=== PATIENT | female | born 1940 | race Caucasian/White ===

== ENCOUNTER 2017-11-07 16:15 | Inpatient (IN) | payer OTHER ==
--- NOTE | 2017-11-07 17:01 | CT ---
Exam: CT abdomen pelvis without intravenous contrast. Comparison: None available. Reason for exam: Abdominal pain with fever. FINDINGS: Emphysematous disease is seen in the partially imaged lung bases with large basilar consol idations. Please see CT examination of the chest performed on the same day for further characterizat ion. Image interpretation is limited by the lack of intravenous contrast administration. There is a moderately-sized hiatal hernia. There is a small pericardial effusion. The gallbladder is not well seen on the exam. The spleen, right adrenal gland, and pancreas appear grossly unremarkable within limitations of a non contrasted study. There is nodularity seen in the left adrenal gland. No focal small bowel dilatation or transition point. No intra-abdominal free air or pelvic free fluid. Diverticular disease is seen in the rectosigmoid and descending colon without surrounding inflammator y change. There is a large stool burden in the rectal vault. No hydronephrosis or nephrolithiasis in either kidney. The entirety of the ureters is not able to be traced throughout the abdomen and pelvis secondary to a lack of intravenous contrast. Degenerative disease is seen in the lumbosacral spine. No suspicious appearing osteoblastic or osteolytic lesions. Impression: 1. Please see CT examination of the chest for evaluation of the thorax. There appears to be a large consolidations in the lung bases with air bronchograms and a pericardial effusion. 2. Nodularity in the left adrenal gland incompletely evaluated on this exam. 3. Diverticulosis without obvious diverticulitis. 4. Dense stool burden in the rectal vault raising consideration for constipation and impaction with mild rectal wall inflammation and thickening. Consider direct visualization. 5. No intra-abdominal free air or pelvic free fluid.
--- NOTE | 2017-11-07 17:05 | CT ---
EXAM: CT chest without contrast TECHNIQUE: Helical axial CT of the chest was performed without contrast with coronal and sagittal rec onstructions. COMPARISON: CT abdomen pelvis from today HISTORY: Cough FINDINGS: Lung parenchyma: There is a large air space opacification in the right lateral lung base with some a ir bronchograms. There is no large effusion. There is a more chronic-appearing consolidation in the left lung base with bronchiectasis. Mediastinum: No pathologic hilar or mediastinal adenopathy. No significant coronary calcifications. T here is a small pericardial effusion. There is some mild calcific atherosclerosis of the aorta. There is no aortic aneurysm. There is a hiatal hernia. Upper Abdomen: Please refer to today's CT abdomen pelvis report. Osseous structures: Nothing acute. Surrounding soft tissues including the thyroid gland are normal. No supraclavicular or axillary adeno laina. IMPRESSION: 1. Right lower lobe pneumonia however would recommend follow-up to resolution to rule out underlying progressive etiology for this appearance. 2. Chronic scarring and atelectasis and bronchiectasis left base. 3. Large hiatal hernia.
[2017-11-07] MEDS ORDERED: TYLENOL PO STA (17:07)
[2017-11-07] MEDS ORDERED: SODIUM CHLORIDE 1,000 ML IV STA (17:11)
--- NOTE | 2017-11-07 17:11 | ED.PDOC ---
General ED Provider: Dr. ZE CASTRO-ER Chief Complaint: Fever Stated Complaint: shes had a fever and coughing Time Seen by Physician: 16:20 Mode of Arrival: Walk-In Information Source: Patient, Family Exam Limitations: No limitations Primary Care Provider: TRIXIE GARCIA Nursing and Triage Documentation Reviewed and Agree: Yes Does patient meet sepsis criteria?: Yes If yes, has appropriate treatment been initiated?: Yes System Inflammatory Response Syndrome: Temp 101F or Greater, Not Applicable Sepsis Protocol: For patient's 13 years and over: Temp is 96.8 and below OR 101 and greater Pulse >90 BPM Resp >20/minute Acutely Altered Mental Status Are patient's symptoms suggestive of a new infection, such as: -Pneumonia -Skin, Soft Tissue -Endocarditis -UTI -Bone, Joint Infection -Implantable Device -Acute Abdominal Infection -Wound Infection -Meningitis -Blood Stream Catheter Infection -Unknown Respiratory Complaint Exam - Respiratory Complaint/Exam Onset/Duration: 2 days Symptoms Are: Still present Timing: Constant, Intermittent Initial Severity: Mild Current Severity: Moderate Location: Chest Character: Reports: Productive cough Aggravating: Reports: URI Alleviating: Reports: None Associated Signs and Symptoms: Reports: Fever, Chills, URI Related History: Reports: Similar episode History of Healthcare-Acquired Pneumonia: No Home Oxygen Use: No Recent Stress Test: No Recent Echo/LV Function: No Respiratory Distress: None Inadequate Respiratory Effort: No Dysphagia Present: No Stridor Present: No JVD Present: No Accessory Muscle Use: No Retractions: Not Present Diminished Breath Sounds: No Sinus Tenderness: None Grunting Respirations: Yes Kussmaul Respirations: Yes Differential Diagnoses: Pneumonia, Bronchitis, URI Non-Traumatic Chest Pain Syncope: EKG Performed Review of Systems - Review Of Systems Constitutional: Reports: Chills, Fever, Weakness Eyes: Reports: No symptoms Ears, Nose, Mouth, Throat: Reports: No symptoms Respiratory: Reports: Cough, Short of air Cardiac: Reports: No symptoms GI: Reports: No symptoms : Reports: No symptoms Musculoskeletal: Reports: No symptoms Skin: Reports: No symptoms Neurological: Reports: No symptoms Endocrine: Reports: No symptoms Hematologic/Lymphatic: Reports: No symptoms All Other Systems: Reviewed and Negative Past Medical History - Past Medical History Previously Healthy: No Endocrine: Reports: Unknown Cardiovascular: Reports: Unknown Respiratory: Reports: COPD Hematological: Reports: Other Gastrointestinal: Reports: Other Genitourinary: Reports: Other Neuro/Psych: Reports: Other Musculoskeletal: Reports: Other Cancer: Reports: Other Last Menstrual Period: NA - Surgical History General Surgical History: Reports: Unknown - Family History Family History: Reports: Unknown - Social History Smoking Status: Never smoker Hx Substance Use: No Alcohol Screening: None - Immunizations Tetanus Shot up to Date: Yes Physical Exam - Physical Exam Appearance: Well-appearing, No pain distress, Well-nourished Ill-appearing: Mild Eyes: ABEBA, EOMI, Conjunctiva clear ENT: Ears normal, Nose normal, Oropharynx normal Neck: Supple Respiratory: Crackles, Rhonchi Cardiovascular: RRR, Pulses normal, No rub, No murmur GI/: Soft, Nontender, No masses, Bowel sounds normal, No Organomegaly Musculoskeletal: Normal strength, ROM intact, No edema, No calf tenderness Skin: Warm, Dry, Normal color Neurological: Sensation intact, Motor intact, Reflexes intact, Cranial nerves intact, Alert, Oriented Psychiatric: Affect appropriate, Mood appropriate Interpretation - Radiology Interpretation Radiology Interpretation By: Radiologist Radiology Results: Positive Exam Interpreted: CT Scan - EKG Interpretation Time of EKG #1: 17:44 Rate: Normal Rhythm: Sinus Ectopy: None [place]: NL ST Segment: Normal Interpretation: mar Physician Notification - Case Discussed Physician Notified: dr colon Time of Notification: 17:44 Critical Care Note - Critical Care Note Total Time (mins): 0 Course - Course Hematology/Chemistry: 11/07/17 16:43 11/07/17 16:43 Orders, Labs, Meds: Lab Review 11/07/17 11/07/17 11/07/17 16:28 16:43 16:43 WBC 14.16 H RBC 3.17 L Hgb 8.8 L Hct 27.6 L MCV 87.1 MCH 27.8 MCHC 31.9 RDW Coeff of Levi 13.2 Plt Count 352 Immature Gran % (Auto) 0.4 Neut % (Auto) 79.0 Lymph % (Auto) 12.5 Placer % (Auto) 7.9 Eos % (Auto) 0.1 Baso % (Auto) 0.1 Immature Gran # (Auto) 0.1 Neut # (Auto) 11.2 H Lymph # (Auto) 1.8 Placer # (Auto) 1.1 Eos # (Auto) 0.0 Baso # (Auto) 0.0 Puncture Site Rb O2 Saturation 94.0 L ABG pH 7.508 H* ABG pCO2 34.7 L ABG pO2 65.0 L ABG HCO3 27.6 H ABG Total CO2 29 H ABG Base Excess 5 H FiO2 % 21.0 Sodium 136.8 L Potassium 3.86 Chloride 100.2 Carbon Dioxide 30.2 H Anion Gap 10.26 BUN 11.7 Creatinine 1.17 Estimated GFR (MDRD) 45.00 BUN/Creatinine Ratio 10.00 Glucose 120.4 H Lactic Acid Calcium 9.00 Total Bilirubin 0.72 AST 30.5 ALT 12.6 Alkaline Phosphatase 147.2 H Total Protein 7.28 Albumin 3.35 L Globulin 3.93 Albumin/Globulin Ratio 0.85 Influ A Molecular Assay Influ B Molecular Assay 11/07/17 11/07/17 16:43 17:05 WBC RBC Hgb Hct MCV MCH MCHC RDW Coeff of Levi Plt Count Immature Gran % (Auto) Neut % (Auto) Lymph % (Auto) Placer % (Auto) Eos % (Auto) Baso % (Auto) Immature Gran # (Auto) Neut # (Auto) Lymph # (Auto) Placer # (Auto) Eos # (Auto) Baso # (Auto) Puncture Site O2 Saturation ABG pH ABG pCO2 ABG pO2 ABG HCO3 ABG Total CO2 ABG Base Excess FiO2 % Sodium Potassium Chloride Carbon Dioxide Anion Gap BUN Creatinine Estimated GFR (MDRD) BUN/Creatinine Ratio Glucose Lactic Acid 0.77 Calcium Total Bilirubin AST ALT Alkaline Phosphatase Total Protein Albumin Globulin Albumin/Globulin Ratio Influ A Molecular Assay Negative by naat Influ B Molecular Assay Negative by naat Orders Category Date Time Status ABG DRAW REQUEST Stat CARDIO 11/07/17 16:28 Completed EKG-(ED ONLY) Stat CARDIO 11/07/17 16:28 Completed ED IV/MEDIPORT/POWERPORT .ONCE EMERGENCY 11/07/17 17:11 Active ABG Stat LAB 11/07/17 16:28 Completed BLOOD CULTURE (ED ONLY) Stat LAB 11/07/17 16:43 Received CBC W/ AUTO DIFF Stat LAB 11/07/17 16:43 Completed COMPREHENSIVE METABOLIC PANEL Stat LAB 11/07/17 16:43 Completed FLU A/B MOLECULAR Stat LAB 11/07/17 17:05 Completed LACTIC ACID Stat LAB 11/07/17 16:43 Completed PROCALCITONIN Stat LAB 11/07/17 16:43 Received URINALYSIS C & S IF INDICATED Stat LAB 11/07/17 16:28 Uncollected 0.9 % Sodium Chloride [Saline Flush] MEDS 11/07/17 17:11 Ordered 1 syr IVF PRN PRN Acetaminophen [Tylenol] MEDS 11/07/17 17:07 Discontinued 650 mg PO ONCE STA Sodium Chloride 0.9% [Sodium Chloride] 1,000 ml MEDS 11/07/17 17:[address] ABDOMEN/PELVIS WO CONTRAST Stat RADS 11/07/17 16:[address] CHEST W/O CONTRAST Stat RADS 11/07/17 16:29 Completed Medications Generic Name Dose Route Start Last Admin Trade Name Freq PRN Reason Stop Dose Admin Sodium Chloride 1,000 mls @ 1,000 mls/hr 11/07/17 17:11 11/07/17 17:14 Sodium Chloride IV 11/07/17 18:10 1,000 mls/hr BOLUS STA Administration Sodium Chloride 1 syr 11/07/17 17:11 Saline Flush IVF PRN PRN To flush IV Discontinued Medications Generic Name Dose Route Start Last Admin Trade Name Freq PRN Reason Stop Dose Admin Acetaminophen 650 mg 11/07/17 17:07 11/07/17 17:13 Tylenol PO 11/07/17 17:08 650 mg ONCE STA Administration Vital Signs: Temp Pulse Resp BP Pulse Ox 11/07/17 16:17 101.8 F H 132 H 22 125/77 94 L Departure - Departure Time of Disposition: 17:45 Disposition: ADMITTED INPATIENT Discharge Problem: Pneumonia Qualifiers: Pneumonia type: due to unspecified organism Laterality: right Lung location: lower lobe of lung Qualified Code(s): J18.1 - Lobar pneumonia, unspecified organism Instructions: Community Acquired Pneumonia (ED) Condition: Fair Pt referred to PMD for follow-up: No IPMP verified?: No Allergies/Adverse Reactions: Allergies Penicillins Adverse Reaction (Verified 11/07/17 16:25) Home Medications: Ambulatory Orders Albuterol Sulfate 2.5 mg IN DAILY 11/07/17 Albuterol Sulfate 25 ml IN DAILY 11/07/17 Albuterol Sulfate [Ventolin Hfa] 18 gm IN DIRECTED PRN 11/07/17 Fluticasone/Salmeterol 250/50 [Advair 250-50 Diskus] 1 puff IH DIRECTED PRN 11/07/17 Furosemide 40 mg PO DAILY 11/07/17 Lisinopril [Zestril] 40 mg PO DAILY 11/07/17 Disposition Discussed With: Patient, Family
[2017-11-07] MEDS ORDERED: TYLENOL PO PRN (17:50)
[2017-11-07] MEDS ORDERED: ALBUTEROL 0.042% NEB IH SCH (18:00)
[2017-11-07] MEDS ORDERED: LEVAQUIN 500 MG in PREMIX 100 ML WATER 1 BAG IV SCH (18:00)
[2017-11-07] MEDS ORDERED: ALBUTEROL 0.042% NEB NEB ONE (18:12)
[2017-11-07] MEDS ORDERED: LEVAQUIN 100 ML IV ONE (18:28)
[2017-11-07] MEDS ORDERED: ALBUTEROL 0.042% NEB NEB SCH (18:30)
[2017-11-07] MEDS: SODIUM CHLORIDE 1,000 ML IV SCH (18:42)
[2017-11-07 18:47] VITALS: BMI 21.2
[2017-11-07] MEDS: ADVAIR 250-50 DISKUS IH SCH (21:36)
[2017-11-07] MEDS: ALBUTEROL 0.042% NEB NEB SCH (23:15)
[2017-11-08] MEDS: ALBUTEROL 0.042% NEB NEB SCH ×4 (04:58→23:15)
[2017-11-08] MEDS: AVELOX 400 MG in PREMIX 250 ML NS 1 BAG IV SCH (08:50)
[2017-11-08] MEDS: ADVAIR 250-50 DISKUS IH SCH ×2 (08:50→20:24)
[2017-11-08] MEDS: LASIX TAB PO SCH (08:51)
[2017-11-08] MEDS: ZESTRIL PO SCH (10:11)
--- NOTE | 2017-11-08 14:21 | DI ---
EXAM: Two views of the chest. History: Follow-up pneumonia Comparison: Chest CT 11/07 2017 Findings: Heart remains mildly enlarged. No significant interval change in the right greater than l eft bibasilar consolidation. No pneumothorax. Visualized osseous structures unchanged. Impression: No significant interval change in the right greater than left bibasilar pneumonia. Cont inued follow-up recommended.
[2017-11-09] MEDS: SODIUM CHLORIDE 1,000 ML IV SCH (04:06)
[2017-11-09] MEDS: ALBUTEROL 0.042% NEB NEB SCH ×3 (05:00→16:50)
[2017-11-09] MEDS: LASIX TAB PO SCH (05:33)
[2017-11-09] MEDS: AVELOX 400 MG in PREMIX 250 ML NS 1 BAG IV SCH (08:26)
[2017-11-09] MEDS: ZESTRIL PO SCH (08:26)
[2017-11-09] MEDS ORDERED: MILK OF MAGNESIA PO STA (08:29)
[2017-11-09] MEDS: ADVAIR 250-50 DISKUS IH SCH ×2 (08:33→20:30)
--- NOTE | 2017-11-09 09:45 | PN ---
DATE OF VISIT: 11/07/17 ADMITTING NOTE 77 year old female had not been feeling well for the last two weeks. She is known to have chronic obstructive lung disease and is on medication. She does have shortness of breath, but that seemed to have worsened. She presented to the emergency room and the work-up showed right lower lobe pneumonia. She was then admitted. WBC is slightly elevated at 14,160. Arterial blood gases alkalotic with pH 7.508, FIO2 21.0, PCO2 34.7, PO2 65, HCO3 27.6, total CO2 29. This patient was prescribed Levaquin 500 mg daily. The patient's BUN is 11.7, creatinine 1.17, estimated GFR 45. The patient is thin at 127 pounds, 5'5". That more or less is her ideal weight. Creatinine maybe lower because of that, since there is not much muscle mass. I changed the Levaquin to Avelox 400 mg a day since there are no renal dosing for Avelox. She also had an elevated alkaline phosphatase, but we will see for the repeat. We will order a GGT today. MTDD
[2017-11-10] MEDS: ALBUTEROL 0.042% NEB NEB SCH ×5 (00:15→21:58)
[2017-11-10] MEDS: LASIX TAB PO SCH (05:43)
[2017-11-10] MEDS: ZESTRIL PO SCH (08:50)
[2017-11-10] MEDS: ADVAIR 250-50 DISKUS IH SCH ×2 (09:55→20:36)
[2017-11-10] MEDS: AVELOX 400 MG in PREMIX 250 ML NS 1 BAG IV SCH (09:58)
[2017-11-10] MEDS ORDERED: DULCOLAX RC STA (17:51)
[2017-11-11] MEDS: ALBUTEROL 0.042% NEB NEB SCH ×4 (04:56→23:03)
[2017-11-11] MEDS: LASIX TAB PO SCH (06:14)
[2017-11-11] MEDS: AVELOX 400 MG in PREMIX 250 ML NS 1 BAG IV SCH (09:16)
[2017-11-11] MEDS: ADVAIR 250-50 DISKUS IH SCH ×2 (09:16→20:41)
[2017-11-11] MEDS: FERROUS SULFATE PO SCH ×2 (09:17→20:41)
[2017-11-11] MEDS: ZESTRIL PO SCH (09:18)
[2017-11-11] MEDS: K-DUR PO SCH ×3 (09:18→17:31)
--- NOTE | 2017-11-11 11:27 | PCM.PROG ---
Attending Provider: ATTENDING PROVIDER: Dr. Pepito LOWE DATE OF SERVICE: 11/11/17 SUBJECTIVE: This 77 year old WHITE/ F was hospitalized 11/07/17. The patient is seen by Dr. Johnson in Dr. Lowe's absence. The patient is hospitalized with weakness, fatigue, and poor appetite. The patient had pneumonia by chest x- ray. Clinically, the patient looks pneumonia free with normal WBC count, no cough, no congestion, no fever or chills. Appetite is improved and she feels better. Weakness and all could be from anemia. She is given 2 units PRBC. Hemoglobin 9.5 with hematocrit of 29. SHe has no evidence of active GI bleed. Stool for occult blood one time - negative. She is up and about. REVIEW OF SYSTEMS: CONSTITUTIONAL: No night sweats. No fatigue, malaise, lethargy. No fever or chills. HEENT: Eyes: No visual changes. No eye pain. No eye discharge. ENT: No runny nose. No epistaxis. No sinus pain. No odynophagia. No congestion. RESPIRATORY: No cough, no congestion. No hemoptysis. No shortness of breath. CARDIOVASCULAR: No angina symptoms. No CHF symptoms. No atypical chest pain for CAD. No palpitations. No orthopnea.. GASTROINTESTINAL: No abdominal pain. No nausea or vomiting. No diarrhea or constipation. No hematemesis. No hematochezia. GENITOURINARY: No urgency. No frequency. No dysuria. No hematuria. No obstructive symptoms. No discharge. No pain. No significant abnormal bleeding. MUSCULOSKELETAL: No musculoskeletal pain; no joint swelling. NEUROLOGICAL: Awake, alert, oriented to time, place and person. No headache. No neck pain. No syncope. No seizures. No dizziness. PSYCHIATRIC: Not anxious. No depression. No suicidal thoughts. No homicidal thoughts. SKIN: No rash. No lesions. No wounds. ENDOCRINE: No unexplained weight loss. No weight gain. HEMATOLOGIC/LYMPHATIC: No anemia. No purpura. No petechiae. No prolonged or excessive bleeding. No palpable lymph nodes. PHYSICAL EXAMINATION: GENERAL: The patient is awake, alert and oriented, lying in bed in no distress. VITAL SIGNS: Temperature 98.5 F, Pulse 70, Respiratory Rate 22, BP 92/57, Pulse Ox 95% HEENT: Head normocephalic, atraumatic. Eyes: Extraocular muscles are intact. Pupils are equal, round and reactive to light and accommodation. Ears: No lesions. Nose appeared normal. Throat: No exudate or erythema. NECK: Supple. No JVD, no carotid bruit. No lymphadenopathy or thyromegaly. LUNGS: Clear to auscultation. Percussion note normal. Chest symmetrical. HEART: S1, S2, no S3. No murmurs. No cyanosis or clubbing. No ascites. Pulses: Dorsalis pedis and posterior tibial pulses +1 to +2 both sides. ABDOMEN: Soft. Non-tender. Bowel sounds active. No CVA tenderness. No mass felt. EXTREMITIES: No edema. Full range of motion of all extremities, equal. NEUROLOGIC: No focal deficit. Cranial nerves II through XII are grossly intact. No headache, no double vision or headache. SKIN: Warm and dry. Intact. Turgor-normal. LYMPHATIC: No palpable lymph nodes/no lymphedema. MUSCULOSKELETAL: Normal joints with no swelling. Muscle tone is normal. LAB REVIEW: 11/11/17 04:30 11/11/17 04:30 11/11/17 04:30: Sodium 137.7, Potassium 3.32 L, Chloride 104.3, Carbon Dioxide 31.0 H, Anion Gap 5.72, BUN 14.7, Creatinine 1.02, Estimated GFR (MDRD) 52.00, BUN/Creatinine Ratio 14.41, Glucose 116.5 H, Calcium 8.59, Total Bilirubin 0.41 , AST 52.5 H, ALT 23.5, Alkaline Phosphatase 189.4 H D, Total Protein 6.33, Albumin 2.87 L, Globulin 3.46, Albumin/Globulin Ratio 0.82 11/11/17 04:30: WBC 7.75, RBC 3.38 L, Hgb 9.5 L, Hct 29.9 L, MCV 88.5, MCH 28.1 , MCHC 31.8, RDW Coeff of Levi 13.9, Plt Count 359, Immature Gran % (Auto) 0.5, Neut % (Auto) 63.0, Lymph % (Auto) 27.2, Phillips % (Auto) 7.5, Eos % (Auto) 1.4, Baso % (Auto) 0.4, Immature Gran # (Auto) 0.0, Neut # (Auto) 4.9, Lymph # (Auto ) 2.1, Phillips # (Auto) 0.6, Eos # (Auto) 0.1, Baso # (Auto) 0.0 11/10/17 22:36: Hgb 9.5 L, Hct 29.6 L 11/10/17 19:15: Stl Occult Blood (IFOB) Negative, Stool Occult Blood #2 No specimen received, Stool Occult Blood #3 No specimen received 11/10/17 11:35: Homocysteine 9.5 11/10/17 11:35: Iron 19.5 L, TIBC 176 L, % Saturation 11 11/10/17 11:35: Reticulocyte % (Auto) 0.86, Absolute Retic 0.0236, Retic Hgb Equivalent 22.1 11/10/17 11:35: Transferrin 111 L 11/10/17 11:35: Ferritin 398.00 H 11/10/17 09:30: Blood Type A POSITIVE, Antibody Screen Negative, Crossmatch (AHG ) See Detail 11/10/17 07:55: Urine Color Yellow, Urine Clarity Clear, Urine pH 5.5, Ur Specific [place] 1.020, Urine Protein 1+, Urine Glucose (UA) Negative, Urine Ketones Negative, Urine Blood Trace-lysed, Urine Nitrite Negative, Urine Bilirubin Negative, Urine Urobilinogen 0.2, Ur Leukocyte Esterase Negative, Urine Microscopic RBC 0-2, Ur Squamous Epith Cells Not present, Urine Bacteria 1 + 11/10/17 04:30: Blood Type A POSITIVE 11/08/17 04:40: Influenza Type A Ab Negative, Influenza Type B Ab Negative ASSESSMENT: 1. Pneumonia by chest x-ray, clinically resolved. 2. Anemia stable, etiology unknown. Will be worked up as an outpatient by PMD. 3. Hypokalemia 4. Borderline hypotension PLAN: 1. Continue antibiotics. 2. Anticipate D/C tomorrow. 3. The patient will follow with Yuki Patino/Dr. Lowe on Wednesday, no work until seen. 4. Ferrous Sulfate 325 mg twice a day. 5. K-Tab 40 mEq t.i.d. daily and today. 6. ABG on room air. Plan and coordination of the patient's care discussed in the presence of Child Custody Evaluator and nurse. CONDITION: Stable; no work until released by Wendy SCRIBED BY: CORBY GILLIAM, [employer] scribed while in presence of service performed by Dr. Pepito LOWE on 11/11/17 ([id number])
--- NOTE | 2017-11-11 12:50 | PN ---
DATE OF VISIT: 11/10/17 77 year old female who had been sick for the last two weeks, worse in the last two days. She presented to the emergency room and was found to have moderate hypoxemia with mild leukocytosis and right lower lobe pneumonia on chest CT. The patient also had a severe anemia with reason unknown. It may be some iron deficiency. The patient on presentation had a temperature of 1001.8. She also was tachycardic, but the tachycardia has returned to normal when the temperature returned to normal. This patient is placed on Avelox 400 mg IV daily. The patient was initially placed on Levofloxacin. In light of the decreased E GFR the Avelox was felt to be a better choice. The patient at the time of my visit was alert, responsive with movement of all extremities. She denies any pain and denies any shortness of breath. Her color is good. LUNGS: Breath sounds are diminished in the right side. There is suggestion of a few fine rales at the right base. The left side has a better air exchange. No rales. HEART: Audible with good tones. ABDOMEN: Unremarkable. Again, no signs of external blood loss to account for the anemia. The anemia may be due to low intake of nutrients as necessary or there is some problems with absorption. A work-up for the anemia was ordered, but no results at this time. DIAGNOSIS: 1. RIGHT LOWER LOBE PNEUMONITIS 2. SEVERE ANEMIA CAUSE UNDETERMINED 3. HISTORY OF HYPERTENSION 4. HISTORY OF COPD. NONSMOKER. PROGNOSIS: Guarded. MTDD
--- NOTE | 2017-11-11 13:38 | HP ---
DATE OF SERVICE: 11/07/17 CHIEF COMPLAINT: Fever, shortness of breath and weakness. SOURCE OF HISTORY: Patient, plus notes from the emergency room and ER MD. HISTORY OF PRESENT ILLNESS: The patient claimed that she had not felt good for the last two weeks. The problem, however, had worsened in the last two days prompting a visit to the emergency room. The patient at the emergency room was noted to have a fever of 101.8, pulse 132, respiratory rate 22, oxygen saturation 94 at room air. Blood pressure 125/77. CT scan of the abdomen and pelvis showed some nodularity of the left adrenal gland. No acute diverticulitis. Stool in the rectal vault. Consolidation at the lung base. CT of the chest showed right lower lobe pneumonia and recommended at follow up. Chronic scarring and atelectasis left base. Large hiatus hernia. The patient was then admitted because of right lower lobe pneumonitis. CBC at the emergency room showed mild leukocytosis 14,160, moderate hypoxemia. She had severe anemia probably mixed origin. Elevated alkaline phosphatase reason undetermined. Urinalysis unremarkable. Influenza A and B by nuclear amplification were negative. PAST PERSONAL HISTORY: The patient was admitted 02/20/2012 because of pneumonia , hypertension and COPD. The patient had previous tubal ligation some 30 years ago. The patient was hypertensive. She did have some heart problems, but not identified specifically. The patient had previous pneumonia. FAMILY HISTORY: Father had carcinoma of the stomach and cardiomegaly and MA. Members of the father's family had TIA. Mother had carcinoma of the esophagus. SOCIAL HISTORY: The patient is single. 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 She never did smoke in her life and no alcoholic beverages. MEDICATIONS: Prior to this admission. Albuterol 2.5 mg per 0.5 cc vial in 2.5 cc saline per nebulizer daily Lisinopril 40 mg daily Advair Diskus 250/50 one puff prn Lasix 40 mg daily Albuterol Sulfate HFA one or two puffs as directed ALLERGIES: Penicillin. REVIEW OF SYSTEMS: CONSTITUTIONAL: The patient has fever, but no chills and with fatigue and increasing. HEALTH INFORMATION TECHNOLOGIST: No headaches, no dizziness, no ataxia. No syncope or seizure, but weak. She still has movement of both upper and lower extremities. VISUAL: Denies any blurred vision, double or loss of vision including hemianopsia. AUDITORY: The patient is able to hear and denies any tinnitus, pain or drainage. RESPIRATORY: The patient has cough with shortness of breath, but denies hemoptysis. CARDIOVASCULAR: Denies any chest pain or chest tightness. GASTROINTESTINAL: The patient's appetite has decreased. No problems swallowing solids or liquids. Denied any abdominal pain. No diarrhea or change in bowel habits and no blood in the stool. GENITOURINARY: No pain on urination or frequency. ENDOCRINE: negative. INTEGUMENT: Denies any rash, pruritus. HEMATOLOGIC: Severe anemia, reason undetermined. The patient denies any external source of bleeding. PSYCHIATRIC: Affect is normal. PHYSICAL EXAMINATION: GENERAL: We have a 77 year old female who is alert and oriented and cooperative. She is admitted because of right lower lobe pneumonia with fever. VITAL SIGNS: On admission, temperature 98.5, but the temperature in the emergency room was 101.8. Pulse rate on admission was 82 from 132 in ER. Blood pressure left 121/71, right 125/69. Respiratory rate 22, oxygen saturation 96 at room air. She is 5'5" 127 pounds and 3.3 ounces. HEAD: Unremarkable. FACE: Symmetrical and equal with no facial weakness. No redness. She denied any tenderness in the frontal and maxillary sinus areas to palpation under pressure. EYES: Pupils equal/reactive to light and round. Conjunctivae not pale. Sclerae not icteric. MOUTH: Unremarkable. THROAT: No inflammation, tumors or exudate. NECK: No masses. No bruit. No tenderness. No rigidity. CHEST: Slightly kyphotic. LUNGS: Breath sounds are diminished and on the right side was coarse breath sounds and coarse rales. The left is diminished, but clear. HEART: Audible and regular with good tones. No murmurs. ABDOMEN: Soft with no remarkable tenderness. No guarding. Bowel sounds are active. No masses palpable. EXTERNAL GENITALIA: Unremarkable. PELVIC: No pelvic masses and no tenderness. RECTAL: Anal sphincter is competent with a moderate amount of stool that is firm. No rectoanal masses. No blood. The stool is brownish in color. LOWER EXTREMITIES: Symmetrical and equal. Pedal pulses are absent. UPPER EXTREMITIES: Symmetrical and equal. ASSESSMENT: 1. RIGHT LOWER LOBE PNEUMONIA 2. SEVERE ANEMIA CAUSE UNDETERMINED 3. HYPERTENSION 4. MODERATE HYPOXEMIA 5. ELEVATED ALKALINE PHOSPHATASE SOURCE UNDETERMINED. TIME SPENT: GREATER THAN 65 MINUTES MTDD
--- NOTE | 2017-11-11 13:47 | PN ---
DATE OF SERVICE: 11/08/17 The patient's vital signs in the evening at 5:15 p.m. showed a temperature of 100.4, pulse 91, blood pressure 98/54. Respiratory rate 18, oxygen saturation 98 at room air. Blood culture negative after two days. Urine culture showed no growth. LUNGS: Still with coarse rales at the right, none on the left. HEART: Normal sinus rhythm. The patient is receiving Avelox 400 mg IV daily. MTDD
--- NOTE | 2017-11-11 13:54 | PN ---
DATE OF SERVICE: 11/09/17 The patient is alert and responsive and cooperative. She is not dyspneic, nor tachypneic. VITAL SIGNS: At 6 p.m. on 11/09/17 showed a temperature of 98.2, pulse 97, blood pressure 98/56, oximetry 99. The patient has 2 liters of oxygen. Blood cultures are still negative. The patient had been afebrile for a whole 24 hours. Her appetite is still not very good. She eat 50% yesterday and 25% today. LUNGS: Still has diminished breath sounds on the right side. The coarse breath sounds, more or less has resolved. The left is fairly clear. HEART: Audible with good tones. ABDOMEN: Unremarkable. CONDITION: Stable and improved. The anemia is persistent. This patient probably would need a colonoscopy, as well as an endoscopy. LOPEZ
--- NOTE | 2017-11-11 14:01 | PN ---
DATE OF SERVICE: 11/10/17 The patient is alert and cheerful. I made rounds with the nurse, Seema. I did inform Mrs. Bell that I would be leaving town and Dr. Johnson will seeing her as a patient. Dr. Johnson will discharge her and do what is needed in her case. She is not dyspneic, nor tachypneic. Her color is good. LUNGS: Diminished breath sounds on the right side with maybe a fine rale at the base. The left has good breath sounds or air exchange. The right is just diminished probably from the pneumonia. Her oral intake yesterday was good at 1,940. She is encouraged to do more drinking. The patient had shown good understanding. I had talked to Dr. Alex Painting's Advanced Nurse Practitioner, and did inform her that I had talked to Dr. Johnson earlier and he told me that maybe I should just keep it in my services. In the light of the anemia, that maybe this patient should be under his care so he can dispose of it as he wishes to. MTDJavier
[2017-11-12] MEDS: ALBUTEROL 0.042% NEB NEB SCH ×2 (04:48→11:28)
[2017-11-12] MEDS: LASIX TAB PO SCH (05:50)
[2017-11-12] MEDS: AVELOX 400 MG in PREMIX 250 ML NS 1 BAG IV SCH (08:59)
[2017-11-12] MEDS: ADVAIR 250-50 DISKUS IH SCH (09:00)
[2017-11-12] MEDS: ZESTRIL PO SCH (09:00)
[2017-11-12] MEDS: FERROUS SULFATE PO SCH (09:00)
[2017-11-12] MEDS: K-DUR PO SCH ×2 (09:00→12:58)
[2017-11-12 09:48] VITALS: TEMP 97.9
[2017-11-12 13:59] VITALS: BP 101/65
--- NOTE | 2017-11-25 14:16 | PN ---
ADDENDUM TO DR. RICHMOND DISCHARGE SUMMARY SUBJECTIVE: 77 year old white female hospitalized with pneumonia, which practically has resolved clinically. The patient will be discharged on oral antibiotics and she is going to be followed by Yuki on Wednesday. Other problem was anemia. There is no evidence of active GI bleed. Her hemoglobin is 9.8, steady and rising. Appetite had improved. She is up and and about. REVIEW OF SYSTEMS: CONSTITUTIONAL: No night sweats. No fatigue, malaise, lethargy. No fever or chills. HEENT: Eyes: No visual changes. No eye pain. No eye discharge. ENT: No runny nose. No epistaxis. No sinus pain. No sore throat. No odynophagia. No congestion. RESPIRATORY: No cough, no congestion. No hemoptysis. No shortness of breath. CARDIOVASCULAR: No angina symptoms. No CHF symptoms. No atypical chest pain for CAD. No palpitations. No orthopnea. GASTROINTESTINAL: No abdominal pain. No nausea or vomiting. No diarrhea or constipation. No hematemesis. No hematochezia. GENITOURINARY: No urgency. No frequency. No dysuria. No hematuria. No obstructive symptoms. No discharge. No pain. No significant abnormal bleeding. MUSCULOSKELETAL: No musculoskeletal pain; no joint swelling. NEUROLOGICAL: No headache. No neck pain. No syncope. No seizures. No dizziness. PSYCHIATRIC: Not anxious. No depression. No suicidal thoughts. No homicidal thoughts. SKIN: No rash. No lesions. No wounds. ENDOCRINE: No unexplained weight loss. No weight gain. HEMATOLOGIC/LYMPHATIC: No anemia. No purpura. No petechiae. No prolonged or excessive bleeding. No palpable lymph nodes. PHYSICAL EXAMINATION: GENERAL: The patient is in no distress. HEENT: Head normocephalic, atraumatic. Eyes: Extraocular muscles are intact. Pupils are equal, round and reactive to light and accommodation. Ears: No lesions. Nose appeared normal. Throat: No exudate or erythema. NECK: Supple. No JVD, no carotid bruit. No lymphadenopathy or thyromegaly. LUNGS: Clear to auscultation. Percussion note normal. Chest symmetrical. HEART: S1, S2, no S3. No murmurs. No cyanosis or clubbing. No ascites. Pulses: Dorsalis pedis and posterior tibial pulses +1 to +2 both sides. ABDOMEN: Soft. Nontender. Bowel sounds active. No CVA tenderness. No mass felt. EXTREMITIES: No edema. Full range of motion of all extremities, equal. NEUROLOGIC: No focal deficit. Cranial nerves II through XII are grossly intact. No headache, no double vision or headache. SKIN: Not dry. Intact. Turgor - normal. LYMPHATIC: No palpable lymph nodes/no lymphedema. MUSCULOSKELETAL: Normal joints with no swelling. Muscle tone is normal. LABS: WBC count 7,500. She has no fever. PLAN: 1. She will be discharged on iron supplements. 2. Zestril will be held because of hypertension. 3. She will be on antibiotics. 4. Do not return to work until released by Yuki. She was also seen and examined with the nurse practitioner. CONDITION: Stable. TIME SPENT: More than 30 minutes. Plan and coordination of the patient's care discussed in the presence of nurse. LOPEZ
--- NOTE | 2017-11-25 14:25 | PN ---
DATE OF SERVICE: 11/12/[address] RICHMOND DISCHARGE SUMMARY HOSPITAL COURSE: Mrs. Bell is discharged in stable condition. Her anemia seems to be stable. Her stool for occult blood was negative. She is going to need to be referred to GI. Clinically her pneumonia is improving. She is experiencing no shortness of breath or fever. She is eating 75 to 100% of her meals. She has an appointment to see Yuki at the [facility] next week and she is to be excused from work until she sees Yuki for her appointment. She has had some lower blood pressure, so she is instructed to hold her Zestril. Again, they will make her an appointment with the GI doctor at her appointment at the clinic. She is discharged today in stable condition. LOPEZ
== END 2017-11-12 17:15 | disposition home or self-care (01) | DRG 152 ==
LOC: ED 16:15 → MEDSURG B 17:56
PROVIDERS: ADMIT General Practice; ATTEND General Practice
DX: J06.9 Acute upper respiratory infection, unspecified (principal); J18.1 Lobar pneumonia, unspecified organism; D64.9 Anemia, unspecified; I10 Essential (primary) hypertension; J44.9 Chronic obstructive pulmonary disease, unspecified; E87.6 Hypokalemia; R09.02 Hypoxemia
CPT/HCPCS: 36415; 36430; 80053; 81001; 82272; 82728; 82803; 82977; 83090; 83540; 83550; 83605; 84145; 84466; 85014; 85018; 85025; 85045; 86710; 86850; 86900; 86922; 87040; 87086; 87502; 93005; 93010; 94640; 96360; 96361; 99285

== ENCOUNTER 2017-11-22 13:51 | Outpatient (CLI) ==
--- NOTE | 2017-11-22 16:29 | DI ---
Exam: Two views of the chest. Comparison: 11/08/2017. Reason for exam: Pneumonia. FINDINGS: Patchy airspace opacities are seen in the right lung base. There is blunting of the left costophrenic angle. The cardiac silhouette is not enlarged. No pneumothorax is seen. Impression: Imaging findings are consistent with basilar atelectasis/pneumonia with small effusions. Imaging fin dings appear similar to the previous exam.
== END 2017-11-22 13:52 | disposition home or self-care (01) ==
LOC: RAD 13:51
PROVIDERS: ATTEND Family Medicine
DX: J18.9 Pneumonia, unspecified organism (principal)